=== PATIENT | female | born 1970 | race African-American/Black ===

== ENCOUNTER 2020-07-15 13:33 | Emergency (ER) | payer OTHER ==
[~2020-07-15] VITALS: Ht 157.5 cm; Wt 79.4 kg
[2020-07-15 13:33] VITALS: BP 196/118
[2020-07-15] MEDS ORDERED: PREDNISONE 20 M20 M1 PO (15:01)
[2020-07-15] MEDS ORDERED: BUTALB-APAP-CA1 EACH PO (15:01)
[2020-07-15] MEDS ORDERED: HYDROCHLOROTH12.5 M1 PO (16:06)
[2020-07-15] MEDS ORDERED: LISINOPRIL5 MG PO (16:06)
== END 2020-07-15 17:08 | disposition home or self-care (01) ==
LOC: ER 13:33
DX: R09.81 Nasal congestion (principal); R51.9 Headache, unspecified; R05 Cough; R50.9 Fever, unspecified; J34.89 Other specified disorders of nose and nasal sinuses; I10 Essential (primary) hypertension; Z20.828 Contact with and (suspected) exposure to other viral communicable diseases